=== PATIENT | female | born 1985 | race African-American/Black ===

== ENCOUNTER 2017-08-26 10:28 | Emergency (ER) | payer SELFPAY ==
[~2017-08-26] VITALS: Ht 180.3 cm; Wt 82.6 kg
[2017-08-26] MEDS ORDERED: ULTRAM50 MG PO (11:03)
[2017-08-26] MEDS ORDERED: CLEOCIN150 MG PO (11:03)
[2017-08-26] MEDS ORDERED: CLEOCIN300 MG PO (11:03)
[2017-08-26 11:20] VITALS: BP 120/90
== END 2017-08-26 11:21 | disposition home or self-care (01) ==
LOC: EME 10:28
DX: K02.9 Dental caries, unspecified (principal); K08.89 Other specified disorders of teeth and supporting structures
CPT/HCPCS: 99281; 99283

== ENCOUNTER 2017-08-27 09:23 | Emergency (ER) | payer SELFPAY ==
[~2017-08-27] VITALS: Ht 180.3 cm; Wt 82.6 kg
[~2017-08-27 09:23] MED LIST: CLEOCIN150 MG PO; CLEOCIN300 MG PO; ULTRAM50 MG PO
[2017-08-27 09:59] LABS: HEMATOCRIT 30.2 % (36.0-46.0); HEMOGLOBIN 9.4 G/DL (11.9-15.5); MCH 23.4 PG (29.0-34.0); MCHC 31.1 G/DL (30.0-36.0); MCV 75.3 FL (83-99); PLATELET COUNT 350 K/uL (156-360); RBC DIS.WIDTH-CV 20.6 % (11.8-14.6); RBC DIS.WIDTH-SD 55.5 % (39-53); RED BLOOD COUNT 4.01 M/uL (3.80-5.20); WHITE BLOOD COUNT 6.1 K/uL (4.1-10.2)
[2017-08-27 10:07] LABS: CHLORIDE 108 mEq/L (99-109); POTASSIUM 3.7 mEq/L (3.7-5.4); SODIUM 142 mEq/L (136-147)
[2017-08-27 10:10] LABS: GLUCOSE 89 mg/dL (70-99); TOTAL PROTEIN 7.6 g/dL (6.4-8.3)
[2017-08-27 10:12] LABS: TOTAL BILIRUBIN 0.4 mg/dL (0.0-1.0)
[2017-08-27 10:13] LABS: ALKALINE PHOSPHATASE 96 IU/L (3-129); CREATININE 0.7 mg/dL (0.6-1.3); GFR ESTIMATE (CALCULATED) > 59 mL/min/
[2017-08-27 10:14] LABS: UREA NITROGEN (BUN) 11 mg/dL (9-23)
[2017-08-27 10:15] LABS: AST (GOT) 17 IU/L (2-34)
[2017-08-27 10:16] LABS: ALT (GPT) 9 IU/L (3-49)
[2017-08-27 11:45] VITALS: BP 135/91
== END 2017-08-27 12:03 | disposition home or self-care (01) ==
LOC: EME 09:23
PROVIDERS: Nurse Practitioner Family
PROC: 3E0T3BZ Introduction of Anesthetic Agent into Peripheral Nerves and Plexi, Percutaneous Approach (ICD-10-PCS; principal; 2017-08-27)
DX: K08.89 Other specified disorders of teeth and supporting structures (principal)
CPT/HCPCS: 80053; 85027; 99281; 99284; J1200; J7030